=== PATIENT | female | born 1970 | race Caucasian/White ===

== ENCOUNTER 2024-10-04 14:09 | Observation (INO) ==
[2024-10-04] MEDS ORDERED: IOPAMIDOL 100 ML BOTTLE IV ONE (14:10)
[2024-10-04 14:56] LABS: Basophils # (Auto) 0.01 K/mcL (0.00-0.30); Basophils % (Auto) 0.2 % (0.0-2.0); Eosinophils # (Auto) 0.02 K/mcL (0.00-0.70); Eosinophils % (Auto) 0.4 % (0.0-7.0); Hematocrit 33.1 % (34.1-44.9); Hemoglobin 10.5 g/dL (11.2-15.7); Lymphocytes # (Auto) 1.11 K/mcL (1.50-4.80); Lymphocytes % (Auto) 23.4 % (15.5-49.0); Mean Cell Volume 98.2 fL (80.0-100.0); Mean Corpuscular HGB Conc 31.7 g/dL (31.0-36.0); Mean Platelet Volume 8.7 fL (8.8-12.5); Monocytes % (Auto) 6.3 % (1.0-12.0); Neutrophils % (Auto) 69.3 % (38.0-78.0); Platelet Count 242 K/mcL (140-440); RBC 3.37 M/mcL (3.59-5.38); Red Cell Distribution Width 15.9 % (11.5-14.5); WBC 4.8 K/mcL (4.5-11.0)
[2024-10-04 15:12] LABS: ALT/SGPT 34 U/L (<40); AST/SGOT 22 U/L (<32); Albumin 3.9 gm/dL (3.2-5.2); Albumin/Globulin Ratio 1.6 (1.0-2.3); Alkaline Phosphatase 68 U/L (39-117); Bilirubin,Total 0.6 mg/dL (0.1-1.0); Blood Urea Nitrogen 10 mg/dL (6-20); Calcium 9.1 mg/dL (8.6-10.4); Carbon Dioxide 23 mmol/L (22-30); Chloride 104 mmol/L (96-108); Globulin 2.4 gm/dL (2.2-3.7); Glomerular Filtration Rate 97; Glucose 130 mg/dL (70-105); Potassium 3.3 mmol/L (3.3-5.1); Sodium 142 mmol/L (133-145)
[2024-10-04 15:22] LABS: Creatine Kinase 33 U/L (24-170)
[2024-10-04 15:23] LABS: Prothrombin Time 13.7 sec (11.9-14.5)
[2024-10-04] MEDS ORDERED: GADOBENATE DIMEGLUMINE 20 ML/VIAL IV ONE (20:31)
[2024-10-04] MEDS ORDERED: POTASSIUM CHLORIDE 20 MEQ TABLET PO PRN (20:38)
[2024-10-04] MEDS ORDERED: SENNOSIDES 1 TABLET PO PRN (20:38)
[2024-10-04] MEDS ORDERED: POLYETHYLENE GLYCOL 3350 17 GM PACKET PO PRN (20:38)
[2024-10-04] MEDS ORDERED: POTASSIUM CHLORIDE 40 MEQ in DEXTROSE 5% IN WATER 500 ML IV PRN (20:38)
[2024-10-04] MEDS ORDERED: ONDANSETRON 4 MG/2 ML VIAL IV PRN (20:38)
[2024-10-04] MEDS ORDERED: IPRATROPIUM/ALBUTEROL 3 ML AMPUL.NEB NEB PRN (20:38)
[2024-10-04] MEDS ORDERED: MAGNESIUM SULFATE 2 GM/50 ML BAG IV PRN (20:38)
[2024-10-04] MEDS ORDERED: METOCLOPRAMIDE 10 MG/2 ML VIAL IV PRN (20:38)
[2024-10-04 21:02] LABS: HDL Cholesterol 54 mg/dL (>40); LDL Cholesterol,Calculated 159 mg/dL (<100); Non-HDL Cholesterol 202 mg/dL (<130); Triglycerides 214 mg/dL (<150)
[2024-10-04] MEDS: levETIRAcetam 500 MG TABLET PO SCH (21:29)
[2024-10-04] MEDS: APIXABAN 5 MG TABLET PO SCH (21:30)
[2024-10-04] MEDS: MEMANTINE 10 MG TABLET PO SCH (21:30)
[2024-10-04] MEDS: ACETAMINOPHEN W/CODEINE #3 1 TABLET PO SCH (21:30)
[2024-10-04] MEDS: ATORVASTATIN 40 MG TABLET PO SCH (21:31)
[2024-10-04] MEDS: 0.9 % SODIUM CHLORIDE 10 ML SYRINGE IV SCH (21:31)
[2024-10-04] MEDS: DOCUSATE SODIUM 100 MG CAPSULE PO SCH (21:44)
[2024-10-05 06:36] LABS: ALT/SGPT 25 U/L (<40); AST/SGOT 16 U/L (<32); Albumin 3.4 gm/dL (3.2-5.2); Albumin/Globulin Ratio 1.8 (1.0-2.3); Alkaline Phosphatase 56 U/L (39-117); Bilirubin,Direct 0.2 mg/dL (<0.3); Bilirubin,Total 0.5 mg/dL (0.1-1.0); Blood Urea Nitrogen 10 mg/dL (6-20); Calcium 8.7 mg/dL (8.6-10.4); Carbon Dioxide 25 mmol/L (22-30); Chloride 108 mmol/L (96-108); Globulin 1.9 gm/dL (2.2-3.7); Glomerular Filtration Rate 102; Glucose 101 mg/dL (70-105); Lactate Dehydrogenase 277 U/L (135-225); Potassium 3.1 mmol/L (3.3-5.1); Sodium 144 mmol/L (133-145); Triglycerides 135 mg/dL (<150); Uric Acid 4.8 mg/dL (2.5-8.0)
[2024-10-05] MEDS: OMEPRAZOLE 20 MG CAPSULE PO SCH (07:49)
[2024-10-05] MEDS ORDERED: FUROSEMIDE 40 MG TABLET PO SCH (08:00)
[2024-10-05] MEDS: FLUoxetine HCL 20 MG CAPSULE PO SCH (09:03)
[2024-10-05] MEDS: POTASSIUM CHLORIDE 20 MEQ TABLET PO PRN (09:04)
[2024-10-05] MEDS: FUROSEMIDE 40 MG TABLET PO SCH (09:58)
[2024-10-05] MEDS: ACETAMINOPHEN W/CODEINE #3 1 TABLET PO PRN (10:35)
[2024-10-05 11:54] LABS: Appearance,Urine Clear (Clear); Bilirubin,Urine Small mg/dL (Negative); Color,Urine Yellow; Glucose,Urine (UA) Negative (Negative); Ketones,Urine Negative (Negative); Leukocyte Esterase,Urine Negative /uL (Negative); Mucus,Urine Few /hpf; Nitrate,Urine Negative (Negative); Protein,Urine Trace mg/dL (Negative); Specific Gravity,Urine 1.015 (1.000-1.035); Urine Blood Negative ery/mcL (Negative); Urine RBC 6 /hpf (0-3); Urine Squamous Epithelial Cell 2 /hpf (0-4); Urine WBC 1 /hpf (0-4); Urobilinogen,Urine Normal
[2024-10-05] MEDS: ACETAMINOPHEN 325 MG TABLET PO PRN (20:37)
[2024-10-06 06:29] LABS: Blood Urea Nitrogen 11 mg/dL (6-20); Calcium 8.5 mg/dL (8.6-10.4); Carbon Dioxide 26 mmol/L (22-30); Chloride 107 mmol/L (96-108); Glomerular Filtration Rate 102; Glucose 99 mg/dL (70-105); Potassium 3.3 mmol/L (3.3-5.1); Sodium 143 mmol/L (133-145)
[2024-10-06 11:00] VITALS: O2SAT 97
[2024-10-06] MEDS: DEXAMETHASONE 4 MG TABLET PO SCH (11:03)
[2024-10-06 12:13] VITALS: TEMP 97
== END 2024-10-06 13:20 | disposition home or self-care (01) ==
LOC: ED 14:09 → ICU 14:09
PROVIDERS: ADMIT Internal Medicine; ATTEND Internal Medicine